=== PATIENT | male | born 1945 | race Caucasian/White ===

== ENCOUNTER 2024-03-03 12:29 | Emergency (ER) | payer OTHER ==
--- NOTE | 2024-03-03 15:47 | RAD REPORT ---
Procedure: Chest Single View HISTORY: Cough COMPARISON: 2016 FINDINGS: The lungs appear clear of acute infiltrate. No significant pleural effusion noted. The heart is mildly to moderately enlarged. Pacemaker leads in place. . IMPRESSION: No acute abnormality is displayed.
--- NOTE | 2024-03-03 16:15 | ER ---
Nurse's Notes [facility] Name: Silver Adkins Jr Age: 78 yrs Sex: Male : 1945 Arrival Date: 03/03/2024 Time: 12:29 Bed IW10 Private MD: Diagnosis: Weakness;Presence of cardiac pacemaker Presentation: 03/03 12:50 Chief complaint: Patient states: Feeling lightheaded when standing up, feel weak all jl7 over. Coronavirus screen: At this time, the client does not indicate any symptoms associated with coronavirus-19. Ebola Screen: No symptoms or risks identified at this time. Initial Sepsis Screen: Does the patient meet any 2 criteria? No. Patient's initial sepsis screen is negative. Does the patient have a suspected source of infection? No. Patient's initial sepsis screen is negative. Risk Assessment: Do you want to hurt yourself or someone else? Patient reports no desire to harm self or others. Onset of symptoms is unknown. Care prior to arrival: None. 12:50 Method Of Arrival: Ambulatory jl7 12:50 Acuity: COREY 3 jl7 Triage Assessment: 12:52 General: Appears in no apparent distress. uncomfortable, Behavior is calm, cooperative, jl7 appropriate for age. Pain: Denies pain. Neuro: Level of Consciousness is awake, alert, obeys commands, Oriented to person, place, time, situation. Derm: Skin is dry, Skin is pale, Skin temperature is warm. Historical: - Allergies: 12:52 No Known Allergies; jl7 - PMHx: 12:52 Hypertensive disorder; BPH; Hypercholesterolemia; jl7 - Immunization history:: Adult Immunizations unknown. - Infectious Disease History:: Denies. - Social history:: Smoking status: Patient denies any tobacco usage or history of. Vital Signs: 12:50 BP 106 / 67; Pulse 72; Resp 17; Temp 97.9; Pulse Ox 100% ; Weight 69.4 kg; Height 5 ft. jl7 8 in. ; Pain 0/10; 12:50 Body Mass Index 23.26 (69.40 kg, 172.72 cm) jl7 12:50 Pain Scale: Adult jl7 ED Course: 12:35 Patient arrived in ED. mr 12:43 Carlos Nunez MD is Attending Physician. [facility] 12:52 Triage completed. jl7 12:52 Arm band placed on right wrist. jl7 12:54 Patient placed in waiting room, Patient notified of wait time. jl7 15:39 XRAY Chest (1 view) In Process Unspecified. EDMS 16:13 Sabina Joe, RN is Primary Nurse. [email or web address] Administered Medications: 17:04 Not Given (pt left): ns 0.9% 1000 ml IV at 1000 ml once; to be given as a bolus over 60 jl7 minutes Outcome: 16:14 Discharge ordered by . wenceslao 17:07 Patient left the ED. jl7 Signatures: Dispatcher [employer] EDMS Carlos Nunez MD MD cha Rivera, Mary, Reg Reg mr Mookie Gilman, RN RN jl7 Sabina Joe, RN RN [email or web address]
--- NOTE | 2024-03-03 16:15 | EDPHYS ---
Physician Documentation [facility] Name: Silver Adkins Jr Age: 78 yrs Sex: Male : 1945 Arrival Date: 03/03/2024 Time: 12:29 Bed IW10 Private MD: ED Physician Carlos Nunez HPI: 03/03 15:24 This 78 yrs old Male presents to ER via Ambulatory with complaints of BP check. [facility] 15:24 low bp, hx of aicd. Severity of symptoms: At their worst the symptoms were moderate in [facility] the emergency department the symptoms are unchanged. The patient has experienced similar episodes in the past, several times. Historical: - Allergies: 12:52 No Known Allergies; jl7 - PMHx: 12:52 Hypertensive disorder; BPH; Hypercholesterolemia; jl7 - Immunization history:: Adult Immunizations unknown. - Infectious Disease History:: Denies. - Social history:: Smoking status: Patient denies any tobacco usage or history of. ROS: 15:26 Constitutional: Negative for fever, chills, and weight loss, Eyes: Negative for injury, wenceslao pain, redness, and discharge, ENT: Negative for injury, pain, and discharge, Neck: Negative for injury, pain, and swelling, Cardiovascular: Negative for chest pain, palpitations, and edema, Respiratory: Negative for shortness of breath, cough, wheezing, and pleuritic chest pain, Abdomen/GI: Negative for abdominal pain, nausea, vomiting, diarrhea, and constipation, Back: Negative for injury and pain, : Negative for injury, bleeding, discharge, and swelling, MS/Extremity: Negative for injury and deformity, Skin: Negative for injury, rash, and discoloration, Psych: Negative for depression, anxiety, suicide ideation, homicidal ideation, and hallucinations, Allergy/Immunology: Negative for hives, rash, and allergies, Endocrine: Negative for neck swelling, polydipsia, polyuria, polyphagia, and marked weight changes, Hematologic/Lymphatic: Negative for swollen nodes, abnormal bleeding, and unusual bruising, 15:26 Neuro: Positive for weakness, Exam: 15:26 Constitutional: This is a well developed, well nourished patient who is awake, alert, wenceslao and in no acute distress. Head/Face: Normocephalic, atraumatic. Eyes: Pupils equal round and reactive to light, extra-ocular motions intact. Lids and lashes normal. Conjunctiva and sclera are non-icteric and not injected. Cornea within normal limits. Periorbital areas with no swelling, redness, or edema. ENT: Nares patent. No nasal discharge, no septal abnormalities noted. Tympanic membranes are normal and external auditory canals are clear. Oropharynx with no redness, swelling, or masses, exudates, or evidence of obstruction, uvula midline. Mucous membranes moist. Neck: Trachea midline, no thyromegaly or masses palpated, and no cervical lymphadenopathy. Supple, full range of motion without nuchal rigidity, or vertebral point tenderness. No Meningismus. Chest/axilla: Normal chest wall appearance and motion. Nontender with no deformity. No lesions are appreciated. Cardiovascular: Regular rate and rhythm with a normal S1 and S2. No gallops, murmurs, or rubs. Normal PMI, no JVD. No pulse deficits. Respiratory: Lungs have equal breath sounds bilaterally, clear to auscultation and percussion. No rales, rhonchi or wheezes noted. No increased work of breathing, no retractions or nasal flaring. Abdomen/GI: Soft, non-tender, with normal bowel sounds. No distension or tympany. No guarding or rebound. No evidence of tenderness throughout. Back: No spinal tenderness. No costovertebral tenderness. Full range of motion. Male : Normal genitalia with no discharge or lesions. Skin: Warm, dry with normal turgor. Normal color with no rashes, no lesions, and no evidence of cellulitis. MS/ Extremity: Pulses equal, no cyanosis. Neurovascular intact. Full, normal range of motion., bilateral aka Neuro: Awake and alert, GCS 15, oriented to person, place, time, and situation. Cranial nerves II-XII grossly intact. Motor strength 5/5 in all extremities. Sensory grossly intact. Cerebellar exam normal. Normal gait. Psych: Awake, alert, with orientation to person, place and time. Behavior, mood, and affect are within normal limits. 15:26 ECG was reviewed by the Attending Physician. rn radiology 15:26 Musculoskeletal/extremity: DVT Exam: No signs of deep vein thrombosis. no pain, no swelling, no tenderness, negative Homans' sign noted on exam, no appreciated bluish discoloration, no erythema, no increased warmth, Vital Signs: 12:50 BP 106 / 67; Pulse 72; Resp 17; Temp 97.9; Pulse Ox 100% ; Weight 69.4 kg; Height 5 ft. jl7 8 in. ; Pain 0/10; 12:50 Body Mass Index 23.26 (69.40 kg, 172.72 cm) jl7 12:50 Pain Scale: Adult jl7 MDM: 12:43 Medical Screening Exam initiated [facility] 15:27 Differential Diagnosis altered mental status, sepsis, flu. Data reviewed: vital signs, [facility] nurses notes, lab test result(s), EKG, radiologic studies, plain films. Consideration of Admission/Observation Patient was admitted/placed on observation. Escalation of care including admission/observation considered. I considered the following discharge prescriptions or medication management in the emergency department Medications were administered in the Emergency Department. See MAR. Independent interpretation of the following test(s) in the Emergency Department EKG: See my EKG interpretation above. Test considered but Not performed: Ultrasound no 2 d echo. Historians other than the Patient: Spouse/Significant Other: well inormed. Care significantly affected by the following chronic conditions: Hypertension, pacemaked , aicd. 03/03 15:06 Order name: XRAY Chest (1 view); Complete Time: 16:[address] [facility] 03/03 15:06 Order name: EKG; Complete Time: 15:[address] [facility] 03/03 12:43 Order name: Blood Pressure Recheck: NOTIFY ; Complete Time: 12:[address] [facility] Administered Medications: 17:04 Not Given (pt left): ns 0.9% 1000 ml IV at 1000 ml once; to be given as a bolus over 60 jl7 minutes Disposition Summary: 03/03/24 16:14 Discharge Ordered Notes: Location: Home wenceslao Problem: new wenceslao Symptoms: have improved wenceslao Condition: Stable wenceslao Diagnosis - Weakness wenceslao - Presence of cardiac pacemaker wenceslao Followup: wenceslao - With: Private Physician - When: 2 - 3 days - Reason: Recheck today's complaints, Continuance of care, Re-evaluation by your physician Discharge Instructions: - Discharge Summary Sheet wenceslao - Hypotension wenceslao - Weakness wenceslao - Fatigue wenceslao - Hypotension, [id number] wenceslao - Weakness, [id number] wenceslao Forms: - Medication Reconciliation Form wenceslao - Antibiotic Education wenceslao - Prescription Opioid Use wenceslao - Patient Portal Instructions wenceslao - Leadership Thank You Letter wenceslao Signatures: Dispatcher [employer] EDMS Enrique, Carlos, MD MD wenceslao Gilman, Jahala, EDGAR RN jl7
[2024-03-03 17:46] VITALS: BP 106/67; TEMP 97.9; O2SAT 100
== END 2024-03-03 17:07 | disposition home or self-care (01) ==
LOC: ER 12:29
DX: R53.1 Weakness (principal); I10 Essential (primary) hypertension; E78.00 Pure hypercholesterolemia, unspecified; N40.0 Benign prostatic hyperplasia without lower urinary tract symptoms; Z95.0 Presence of cardiac pacemaker
CPT/HCPCS: 71045; 99281